=== PATIENT | female | born 1950 | race Caucasian/White ===

== ENCOUNTER 2016-11-21 14:02 | Observation (INO) | payer MEDICARE, OTHER ==
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
[2016-11-21] MEDS ORDERED: HYDROmorphone HCL 1 MG/ML DISP.SYRIN ONE (15:42)
[2016-11-21] MEDS ORDERED: HYDROmorphone HCL 1 MG/ML DISP.SYRIN IV ONE ×2 (15:44→18:22)
[2016-11-21] MEDS ORDERED: DIPHTH,PERTUSS(ACELL),TET VAC 0.5 ML VIAL IM ONE ×2 (15:47→15:49)
[2016-11-21] MEDS ORDERED: LIDOCAINE HCL 20 ML VIAL ONE (16:37)
[2016-11-21] MEDS ORDERED: ONDANSETRON HCL/PF 2 MG/ML VIAL IV PRN (18:22)
[2016-11-21] MEDS ORDERED: ALBUTEROL SULFATE/IPRATROPIUM 3 ML NEBU IH PRN (18:22)
[2016-11-21] MEDS ORDERED: oxyCODONE HCL/ACETAMINOPHEN 1 TAB TABLET PO PRN (18:26)
--- NOTE | 2016-11-21 20:36 | HP ---
Chief Complaint - Chief Complaint Date of Service: 11/21/16 Time of Service: 20:33 Chief Complaint: 'Fall, head concussion, LT Arm pain. Source of HPI- Pt; reliable, ERP report. History of Present Illness: Mrs. Murray is a 65-yr-old WF with PMH of: Anxiety, Depression, DM II, HTN, HLD. Pt was staying at the [facility] in [place] [facility], and were leaving with spouse this evening to continue with the journey to their home town in [place]. She accidentally missed two steps on the stairway on way out. She landed on the RT side of her body and struck her head on the floor. There was no loss of consciousness. She reports feeling instant pain on RT shoulder/arm and developed a headache on the way to the [facility] ER. EMS reported approximate 300ml blood loss from the laceration on the Right forehead. At the ED, the shoulder X- ray obtained showed she sustained a Comminuted and displaced RT proximal humerus fracture. The head CT did not show any evidence of Intracranial Hemorrhage, but there was RT frontal hematoma. There were no acute findings on Cervical Spine CT. ERP spoke with Ortho and he recommended pt to be placed on Shoulder Immobilizer and for her to contact Orthopedic for f/u within 7 to 10 days and, for pt to be discharged home. However Pt was unable to tolerate splinting due to pain. She will therefore be admitted under observation status for pain control and due to RT frontal hematoma. . - Patient's Past Medical History Patient History - Medical: Anxiety, Diabetes Type 2, Depression Patient History - Cardiac/Respiratory: Coronary Heart Disease Patient History - Cancer: No Hx of Cancer Patient History - Surgical Procedures: Cataracts, Cholecystectomy, Cardiac stent , , Hysterectomy Patient History - Other: Other LMP (females 10-50): Menopausal - Family History Mother Family History - Medical: Family History - Cardiac/Respiratory: No pertinent hx Family History - Cancer: Other Father Family History - Medical: , No pertinent hx - Social History Living Situations: spouse Abuse History: No History of abuse Psych History: Hx of Anxiety, Hx of Depression Smoking Status: Former smoker Have you smoked in the past 12 months: No Do you dip or chew tobacco: No Patient requests Smoking Cessation Consult: No Initiate information on Smoking Cessation: No Alcohol Use: none Drug Use: none - Immunizations Immunizations Up to Date: No - Unsure of last tetanus vaccination Hx Pneumococcal Vaccination: More Information Required to Determine History of Influenza Vaccine: More Information Required to Determine Review Of Systems (GEN) - Review of Systems Generalized/Overall Review: Absent: Weakness, Chills, Fever EENTM: Absent: Eye Pain, Blurred Vision Respiratory: Absent: Cough, Shortness of Breath, Orthopnea Cardiac: Absent: Chest Pain, Edema, Palpitations Abdominal: Present: Diarrhea - occasional. Absent: Nausea, Vomiting, Hematemesis Genitourinary: Absent: Burning, Itching, Urgency, Frequency Musculoskeletal: Absent: Joint Pain, Back Pain, Joint Swelling, Muscle Pain Neurological: Absent: Headache, Anxiety, Depressed Skin: Absent: Dryness, Lesions, Lumps Endocrine: Absent: Intolerance to Cold, Intolerance to Heat, Increased Thirst Misc: All systems neg except as marked Immunizations: IMMUNIZATION HX Immunizations Up to Date No: Unsure of last tetanus vaccination History of Influenza Vaccine More Information Required Hx Pneumococcal Vaccination More Information Required Allergies/Adverse Reactions: Allergies Allergy/AdvReac Type Severity Reaction Status Date / Time codeine Allergy Verified 11/21/16 19:50 Home Medications: HOME MEDICATIONS Aspirin [Aspirin Enteric Coated] 243 mg PO DAILY 11/21/16 [Last Taken 11/20/16] Atorvastatin Calcium [Lipitor] 80 mg PO DAILY 11/21/16 [Last Taken 11/20/16] Carvedilol [Coreg] 12.5 mg PO BID 11/21/16 [Last Taken 11/20/16] Citalopram Hydrobromide [Citalopram HBr] 40 mg PO DAILY 11/21/16 [Last Taken ] Dicyclomine HCl 10 mg PO DAILY 11/21/16 [Last Taken 11/20/16] Fenofibrate 160 mg PO DAILY 11/21/16 [Last Taken 11/20/16] Fosinopril Sodium 10 mg PO DAILY 11/21/16 [Last Taken 11/20/16] Gabapentin [Neurontin] 300 mg PO BID 11/21/16 [Last Taken 11/20/16] Lisinopril 11/21/16 [Last Taken Unknown] Nitroglycerin [Nitrostat] 0.4 mg SL Q5MIN PRN 11/21/16 [Last Taken Unknown] glyBURIDE [Micronase] 5 mg PO BIDAC 11/21/16 [Last Taken 11/20/16] metFORMIN HCL 1,000 mg PO TID 11/21/16 [Last Taken 11/20/16] Exam - Exam Vital Signs: Vital Signs - Last Taken Temp 36.8 C 11/21/16 19:25 Pulse 91 11/21/16 19:25 Resp 18 11/21/16 19:25 BP 155/74 11/21/16 19:25 Pulse Ox 94 11/21/16 19:25 Constitutional: Present: Alert, Oriented x3, Cooperative, Mild distress ENT Exam: Present: normal ENT inspection, hearing grossly normal Eye Exam: bilateral eye: normal inspection, PERRL Neck: Present: non-tender, full range of motion, supple Back Exam: Present: normal inspection Breasts: Present: Exam deferred Respiratory: Present: lungs clear, No rales, No wheezing Cardiovascular/Chest: Present: regular rate, rhythm, no chest tenderness, no edema, no murmur Abdomen: Present: Normal bowel sounds, soft, nontender /Rectal: Present: Exam deferred Extremity: Present: no pedal edema, other - RT arm- limited range of motion, tenderness on RT shoulder. Skin Exam: Present: other - Laceration on RT forehead with slight swelling Lymphatic: Present: no adenopathy Neurologic: Present: alert, normal mood/affect, oriented x 3. Absent: dizzy/ light-headedness Appearance: Present: appropriate appearance, appropriate insight Eye contact: Present: cooperative, good eye contact, normal speech Thoughts: Present: normal thought pattern, no apparent hallucination Assessment/Plan - Assessment/Plan (1) Humerus fracture Assessment: As discussed in the HPI, Ortho consulted by the ERP and he had recommendations for the RT humerus fracture to be splinted and for pt to follow-up with an orthopedic surgeon in her hometown within 7-10 days. The decision was made to admit pt under observation status to ensure adequate pain control with oral analgesics and due to hematoma on her RT frontal head. Will therefore provide supportive cares with: pain control, immobilizing the affected extremity with a splint and monitor V.S. Problem: Acute Qualifiers: Encounter type: initial encounter Humerus Location: surgical neck Fracture type: closed Fracture morphology: unspecified fracture morphology Fracture alignment: displaced Laterality: right Qualified Code(s): S42.211A - Unspecified displaced fracture of surgical neck of right humerus, initial encounter for closed fracture (2) Inadequate pain control Assessment: Encouraged to stay with oral pain meds and reserve IV narcotics for breakthrough pain. Problem: Acute (3) Laceration of skin of forehead Assessment: Apply bacitracin ointment and light dressing. Problem: Acute (4) HTN (hypertension) Assessment: Stable- On Coreg and Lisinopril. Problem: Chronic (5) Diabetes mellitus Assessment: Stable- On metformin and Glyburide. Problem: Chronic (6) Anxiety Problem: Chronic (7) Depression Assessment: Stable- On celexa. Problem: Chronic
[2016-11-21] MEDS ORDERED: NITROGLYCERIN 0.4 MG/TAB BTL SL PRN (21:13)
[2016-11-21] MEDS ORDERED: CARVEDILOL 6.25 MG TABLET ONE (21:35)
[2016-11-21] MEDS: oxyCODONE HCL/ACETAMINOPHEN 1 TAB TABLET PO PRN (21:37)
[2016-11-21] MEDS: CARVEDILOL 12.5 MG TABLET PO SCH (21:38)
[2016-11-21] MEDS: GABAPENTIN 300 MG CAPSULE PO SCH (21:39)
[2016-11-21 21:47] LABS: Hematocrit 32.2 % (37.0-47.0); Hemoglobin 10.5 gm/dL (12.5-16.0); Mean Cell Volume 87.5 fl (78-100); Mean Corpuscular Hemoglobin 28.5 pg (27-31); Mean Corpuscular Hgb Conc 32.6 g/dl (32-36); Mean Platelet Volume 9.2 fl (6.0-9.5); Neutrophil # 6.6 K/mm3 (1.3-6.0); Neutrophil % 73.2 % (42-75.0); Platelet Count 260 K/mm3 (150-450); Red Blood Count 3.68 M/mm3 (4.2-5.4); Red Cell Distribution Width 14.6 % (11.5-14.0)
[2016-11-21 21:57] LABS: Anion Gap 13.2 mmol/L (6.8-13.8); Calcium * 9.1 mg/dL (7.9-10.9); Carbon Dioxide 28.4 mmol/L (24-32.6); Estimated Creat Clear 44.1; Potassium 4.6 mmol/L (3.4-4.6)
[2016-11-21] MEDS ORDERED: BACITRACIN ZINC 30 APPL TUBE TP PRN (22:28)
[2016-11-21] MEDS: HYDROmorphone HCL 1 MG/ML DISP.SYRIN IV PRN (23:48)
[2016-11-22] MEDS: oxyCODONE HCL/ACETAMINOPHEN 1 TAB TABLET PO PRN (06:48)
[2016-11-22] MEDS ORDERED: glyBURIDE 5 MG TABLET PO SCH (07:00)
[2016-11-22] MEDS: CARVEDILOL 12.5 MG TABLET PO SCH (08:04)
[2016-11-22] MEDS: GABAPENTIN 300 MG CAPSULE PO SCH (08:05)
[2016-11-22] MEDS ORDERED: ATORVASTATIN CALCIUM 40 MG TABLET PO SCH (09:00)
[2016-11-22] MEDS ORDERED: DICYCLOMINE HCL 10 MG CAPSULE PO SCH (09:00)
[2016-11-22] MEDS ORDERED: LISINOPRIL 10 MG TABLET PO SCH (09:00)
[2016-11-22] MEDS ORDERED: FENOFIBRATE,MICRONIZED 134 MG CAPSULE PO SCH (09:00)
[2016-11-22] MEDS ORDERED: CITALOPRAM HYDROBROMIDE 20 MG TABLET PO SCH (09:00)
[2016-11-22] MEDS ORDERED: ASPIRIN 81 MG TABLET.DR PO SCH (09:00)
[2016-11-22] MEDS: HYDROmorphone HCL 1 MG/ML DISP.SYRIN IV PRN (09:35)
[2016-11-22 10:09] VITALS: BP 93/76
[2016-11-22] MEDS ORDERED: BISACODYL 5 MG TABLET.DR PO ONE (10:22)
[2016-11-22] MEDS ORDERED: SENNOSIDES 8.6 MG TABLET PO ONE (10:30)
[2016-11-22 11:05] LABS: Iron 26 mcg/dL (35-120); Transferrin Sat. (% Sat.) 7 % (15-55)
--- NOTE | 2016-11-22 12:58 | DS ---
(1) Concussion with brief LOC Problem: Acute (2) Humerus fracture Problem: Acute Qualifiers: Encounter type: initial encounter Humerus Location: surgical neck Fracture type: closed Fracture morphology: unspecified fracture morphology Fracture alignment: displaced Laterality: right Qualified Code(s): S42.211A - Unspecified displaced fracture of surgical neck of right humerus, initial encounter for closed fracture (3) Inadequate pain control Problem: Acute (4) Laceration of skin of forehead Problem: Acute (5) Anxiety Problem: Chronic (6) Depression Problem: Chronic (7) Diabetes mellitus Problem: Chronic (8) HTN (hypertension) Problem: Chronic Description of Stay: Date of Admission: 11/21/16 Date of Discharge: 11/22/16 Description of Stay: Yancy is a 65 year old female who was at the [facility] where she missed two steps and fell, landing on her right side and striking her head on the marble floor. There was no LOC. Laceration to right forehead was sutured in the ER. right shoulder xray showed comminuted and displaced right proximal humerus fracture. CT of the head was negative for intracranial hemorrhage but did indicate right frontal hematoma. CT of the cervical spine was non-acute. Patient was admitted for pain management and for observation due to head injury. No adverse event were observed overnight and the patient was able to be discharge the following day with oral pain medications. Patient was instructed to follow up with an orthopaedic doctor in her home town within one week. Procedures Performed: none Discharge Disposition: Home self care Disposition: Home self-care Condition: Undetermined Discharge Activity: Other - keep right arm in immobilizer at all times; non weight bearing with right arm. Discharge Diet: Consistent carbs Problem Oriented Discharge Instructions to Patient/Family: Concussion, Adult, [id number], Humerus Fracture Treated With Immobilization Additional Patient Instructions (free text): Follow up with an orthopaedic surgeon within 1 week when you arrive home. May use ice to the right shoulder as needed. Follow up with your primary care physician as needed - inform him that you blood count is low - ask about a bone density test. - in addition, iron saturation was iron - need iron replacement. New medication: 1. Percocet 5/325 mg tabs. 1-2 tabs by mouth every 6 hours as needed for pain. 2. Zofran 4 mg tabs. 1 tab every 6 hours as needed for nausea Over the counter medications to by: 1. Senna tabs (sennosides): take 2 tabs at bedtime to prevent constipation while taking pain medication. 2. Colace (docsate): take 1 capsule 2 times a day to prevent constipation while taking pain medications 3. Dulcolax (biscodal): take 5 mg tabs by mouth daily to prevent constipation while taking pain medications hold any of the above meds if significant diarrhea. 4. Vitamin D3 - take 5000 units by mouth daily for 3 months then take 2000 units by mouth daily 5. Ferrous sulfate 325 mg daily with 500 mg of vitamin C. Time spent 52 minutes. Prescriptions (Any new or edited meds): Ondansetron HCl [Zofran] 4 mg PO Q6H PRN #30 tablet PRN Reason: Nausea oxyCODONE HCL/ACETAMINOPHEN [Percocet 5-325 mg Tablet] 1 - 2 each PO Q6H PRN # 45 tablet PRN Reason: Severe Pain Complete Home Medications List: Complete Home Medication List: Aspirin [Aspirin Enteric Coated] 243 mg PO DAILY 11/21/16 Atorvastatin Calcium [Lipitor] 80 mg PO DAILY 11/21/16 Carvedilol [Coreg] 12.5 mg PO BID 11/21/16 Citalopram Hydrobromide [Citalopram HBr] 40 mg PO DAILY 11/21/16 Dicyclomine HCl 10 mg PO DAILY 11/21/16 Fenofibrate 160 mg PO DAILY 11/21/16 Fosinopril Sodium 10 mg PO DAILY 11/21/16 Gabapentin [Neurontin] 300 mg PO BID 11/21/16 Nitroglycerin [Nitrostat] 0.4 mg SL Q5MIN PRN 11/21/16 glyBURIDE [Micronase] 5 mg PO BIDAC 11/21/16 metFORMIN HCL 1,000 mg PO TID 11/21/16 Ondansetron HCl [Zofran] 4 mg PO Q6H PRN #30 tablet 11/22/16 oxyCODONE HCL/ACETAMINOPHEN [Percocet 5-325 mg Tablet] 1 - 2 each PO Q6H PRN # 45 tablet 11/22/16
== END 2016-11-22 14:19 | disposition home or self-care (01) ==
LOC: ER 14:02 → MS 17:34
PROVIDERS: ADMIT Internal Medicine; ATTEND Internal Medicine
DX: S06.0X1A Concussion with loss of consciousness of 30 minutes or less, initial encounter (principal); S01.81XA Laceration without foreign body of other part of head, initial encounter; S42.211A Unspecified displaced fracture of surgical neck of right humerus, initial encounter for closed fracture; W10.8XXA Fall (on) (from) other stairs and steps, initial encounter; Y92.59 Other trade areas as the place of occurrence of the external cause; I10 Essential (primary) hypertension; E11.9 Type 2 diabetes mellitus without complications; Z79.84 Long term (current) use of oral hypoglycemic drugs; E66.9 Obesity, unspecified; Z68.36 Body mass index [BMI] 36.0-36.9, adult; Z87.891 Personal history of nicotine dependence; F41.8 Other specified anxiety disorders
CPT/HCPCS: 12013; 29240; 36415; 70450; 71010; 72125; 73030; 80048; 82607; 83540; 83550; 85025; 90471; 90715; 94640; 94660; 96374; 96376; 99285; G0378